=== PATIENT | male | born 1980 | race Caucasian/White ===

== ENCOUNTER 2016-11-03 14:37 | Emergency (ER) | payer BC ==
[2016-11-03] MEDS ORDERED: DIAZEPAM INJ 10 MG/2 ML DISP.SYRIN IM ONE (15:35)
[2016-11-03] MEDS ORDERED: KETOROLAC TROMETHAMINE 60 MG/2 ML SDV IM ONE (15:36)
--- NOTE | 2016-11-03 15:41 | ER Document Report ---
ED Neck/Back Problem - General Chief Complaint: Back Pain Stated Complaint: BACK PAIN Time Seen by Provider: 11/03/16 15:35 Notes: 36 yo male c/o right sided back pain. acute onset pain while bending over brushing teeth. felt a pop pain with sharp pain in right mid back down to right middle buttock. pt has hx/o DDD for which is on pain management with Doug Paige at [facility] in [place]. Pt is prescribed Percocet 10mg QID. Pt reports pain med "not touching my pain". Pt reports he was deep sea fishing yesterday, did not have pain. pt denies fever, paresthesia, bowel/bladder change. No recent injections or tattoos. TRAVEL OUTSIDE OF THE [place] IN LAST 30 DAYS: No - HPI Onset: This morning Where: Home Onset: Sudden Timing: Constant Quality of pain: Sharp Pain Level: 5 Recent injury: No Associated symptoms: None Exacerbated by: Other - movement Relieved by: Nothing Similar symptoms previously: Yes Recently seen / treated by doctor: Yes - [facility] 10/21 for chronic back pain - Related Data Allergies/Adverse Reactions: clindamycin [Clindamycin] Adverse Reaction (Verified 05/11/14 22:55) VOMITING Past Medical History - General Information source: Patient - Social History Smoking Status: Current Every Day Smoker Frequency of alcohol use: None Drug Abuse: None Lives with: Family Family History: Reviewed & Not Pertinent Patient has suicidal ideation: No Patient has homicidal ideation: No - Past Medical History Cardiac Medical History: Reports: Hx Hypertension Renal/ Medical History: Denies: Hx Peritoneal Dialysis GI Medical History: Reports: Hx Gastroesophageal Reflux Disease - Immunizations Hx Diphtheria, Pertussis, Tetanus Vaccination: - unknown Review of Systems - Review of Systems Constitutional: No symptoms reported EENT: No symptoms reported Cardiovascular: No symptoms reported Respiratory: No symptoms reported Gastrointestinal: No symptoms reported Genitourinary: No symptoms reported Male Genitourinary: No symptoms reported Musculoskeletal: Back pain Skin: No symptoms reported Hematologic/Lymphatic: No symptoms reported Neurological/Psychological: No symptoms reported Physical Exam - Vital signs Vitals: Temp Pulse Resp BP Pulse Ox 98.5 F 66 16 154/108 H 97 11/03/16 14:57 11/03/16 14:57 11/03/16 14:57 11/03/16 14:57 11/03/16 14:57 Interpretation: Normal - General General appearance: Alert In distress: Mild - HEENT Head: Normocephalic, Atraumatic Eyes: Normal Pupils: PERRL - Respiratory Respiratory status: No respiratory distress Chest status: Nontender Breath sounds: Normal Chest palpation: Normal - Cardiovascular Rhythm: Regular Heart sounds: Normal auscultation Murmur: No - Abdominal Inspection: Normal Distension: No distension Bowel sounds: Normal Tenderness: Nontender Organomegaly: No organomegaly - Back Back: Tender - right rhomboid and lattissimus muscle tenderness. no vertebral tenderness. mild right SI tenderness. neg SLT. - Extremities General upper extremity: Normal inspection, Nontender, Normal color, Normal ROM , Normal temperature General lower extremity: Normal inspection, Nontender, Normal color, Normal ROM , Normal temperature, Normal weight bearing. No: John's sign - Neurological Neuro grossly intact: Yes Cognition: Normal Orientation: AAOx4 [place] Coma Scale Eye Opening: Spontaneous Fer Coma Scale Verbal: Oriented [place] Coma Scale Motor: Obeys Commands Fer Coma Scale Total: 15 Speech: Normal Motor strength normal: LUE, RUE, LLE, RLE Sensory: Normal - Psychological Associated symptoms: Normal affect, Normal mood - Skin Skin Temperature: Warm Skin Moisture: Dry Skin Color: Normal Course - Re-evaluation Re-evalutation: 11/03/16 15:43 pt is uncomfortable but no neurologic deficits, no suspicion for epidural abscess, cauda equina or other impingements. no recent trauma. for these reasons there is no indication for imaging at this time. 11/03/16 16:54 pt re-evaluated. pain has improved. pt stable for discharge and f/u with PCM. pt agreeable with plan - Vital Signs Vital signs: Temp Pulse Resp BP Pulse Ox 98.5 F 66 16 154/108 H 97 11/03/16 14:57 11/03/16 14:57 11/03/16 14:57 11/03/16 14:57 11/03/16 14:57 Discharge - Discharge Clinical Impression: Muscle strain Back pain Qualifiers: Back pain location: low back pain Chronicity: acute Back pain laterality: right Sciatica presence: without sciatica Qualified Code(s): M54.5 - Low back pain Condition: Stable Instructions: Ice Packs ([facility]), Warm Packs ([facility]) Additional Instructions: Follow up with your primary care if pain persists Prescriptions: Diazepam [Valium 5 Mg Tablet] 10 mg PO TID PRN #30 tablet PRN Reason: Forms: Elevated Blood Pressure, Return to Work
[2016-11-03 17:16] VITALS: BP 137/92
== END 2016-11-03 17:16 | disposition home or self-care (01) ==
LOC: ER 14:37
DX: T14.8 Other injury of unspecified body region (principal); X58.XXXA Exposure to other specified factors, initial encounter; Y93.E8 Activity, other personal hygiene; M54.5 Low back pain; F17.200 Nicotine dependence, unspecified, uncomplicated; I10 Essential (primary) hypertension; Z79.891 Long term (current) use of opiate analgesic
CPT/HCPCS: 99283; 96372; J3360; J1885

== ENCOUNTER 2018-03-16 19:26 | Emergency (ER) | payer SELFPAY ==
--- NOTE | 2018-03-16 20:21 | ER Document Report ---
ED Medical Screen (RME) - General Chief Complaint: Drug Abuse Stated Complaint: ETOH ABUSE Time Seen by Provider: 03/16/18 20:13 Notes: 38-year-old male with chief complaint of opiate withdrawals including the spasms , nausea, jitteriness, he has a history of heroin abuse, has not used since yesterday, he also reports that he is having suicidal ideations, this includes a plan, he states that he was having thoughts of killing himself using a gun that is at home at this time. Denies history of suicide attempt. Denies any daily medications. TRAVEL OUTSIDE OF THE [place] IN LAST 30 DAYS: No - Related Data Allergies/Adverse Reactions: clindamycin [Clindamycin] Adverse Reaction (Verified 05/11/14 22:55) VOMITING Past Medical History - Social History Drug Abuse: Heroin - Past Medical History Cardiac Medical History: Reports: Hx Hypertension Renal/ Medical History: Denies: Hx Peritoneal Dialysis GI Medical History: Reports: Hx Gastroesophageal Reflux Disease - Immunizations Hx Diphtheria, Pertussis, Tetanus Vaccination: - unknown Physical Exam - Vital signs Vitals: Temp Pulse BP Pulse Ox 98.3 F 94 130/96 H 98 03/16/18 19:58 03/16/18 19:58 03/16/18 19:58 03/16/18 19:58 - Psychological Associated symptoms: Tearful - Patient having trouble making eye contact, he is tearful, he is anxious and jittery Course - Vital Signs Vital signs: Temp Pulse Resp BP Pulse Ox 98.3 F 94 130/96 H 98 03/16/18 19:58 03/16/18 19:58 03/16/18 19:58 03/16/18 19:58
[2018-03-16 21:07] LABS: ABSOLUTE LYMPHOCYTES (AUTO) 2.1 10^3/uL (0.5-4.7); ABSOLUTE MONOCYTES (AUTO) 0.6 10^3/uL (0.1-1.4); ABSOLUTE NEUT (AUTO) 5.4 10^3/uL (1.7-8.2); BASOPHILS % (AUTO) 0.4 % (0-2); EOSINOPHILS % (AUTO) 0.4 % (0-6); HEMATOCRIT 43.8 % (37.9-51.0); HEMOGLOBIN 15.3 g/dL (13.5-17.0); LYMPHOCYTES % (AUTO) 25.4 % (13-45); MEAN CORPUSCULAR HEMOGLOBIN 30.6 pg (27.0-33.4); MEAN CORPUSCULAR VOLUME 87 fl (80-97); MONOCYTES % (AUTO) 7.5 % (3-13); PLATELET COUNT 282 10^3/uL (150-450); RED BLOOD COUNT 5.01 10^6/uL (4.35-5.55); RED CELL DISTRIBUTION WIDTH 14.3 % (11.5-14.0); SEGMENTED NEUTROPHILS % (AUTO) 66.3 % (42-78); TOTAL CELLS COUNTED % (AUTO) 100 %; WHITE BLOOD COUNT 8.2 10^3/uL (4.0-10.5)
[2018-03-16 21:14] LABS: APPEARANCE,URINE CLEAR; BILIRUBIN,URINE NEGATIVE (NEGATIVE); COLOR,URINE STRAW; GLUCOSE, URINE NEGATIVE (NEGATIVE); KETONES,URINE NEGATIVE (NEGATIVE); LEUKOCYTE ESTERASE,URINE NEGATIVE (NEGATIVE); NITRITE,URINE NEGATIVE (NEGATIVE); PROTEIN,URINE NEGATIVE (NEGATIVE); URINE SPECIFIC GRAVITY 1.004; UROBILINOGEN,URINE NEGATIVE mg/dL (<2.0)
[2018-03-16] MEDS ORDERED: LORAZEPAM 1 MG TABLET PO ONE (21:14)
[2018-03-16] MEDS ORDERED: ONDANSETRON 4 MG TAB.RAPDIS PO ONE (21:15)
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
[2018-03-16 21:29] LABS: ALANINE AMINOTRANSFERASE 30 U/L (21-72); ALBUMIN 4.8 g/dL (3.5-5.0); ALCOHOL 13 mg/dL (NONE DETECTED); ALKALINE PHOSPHATASE 63 U/L (38-126); ANION GAP 12 (5-19); ASPARTATE AMINO TRANSFERASE 19 U/L (17-59); BILIRUBIN,DIRECT 0.4 mg/dL (0.0-0.4); BILIRUBIN,TOTAL 0.6 mg/dL (0.2-1.3); BLOOD UREA NITROGEN 15 mg/dL (7-20); CALCIUM 10.4 mg/dL (8.4-10.2); CARBON DIOXIDE 29 mmol/L (22-30); CHLORIDE 98 mmol/L (98-107); GLUCOSE 102 mg/dL (75-110); POTASSIUM 4.2 mmol/L (3.6-5.0); SODIUM 139.4 mmol/L (137-145); TOTAL PROTEIN 7.8 g/dL (6.3-8.2)
[2018-03-16 21:31] LABS: ACETAMINOPHEN < 10 ug/mL (10-30); SALICYLATE < 1.0 mg/dL (2.0-20.0)
[2018-03-16 21:31] LABS: URINE AMPHETAMINES SCREEN NEGATIVE; URINE BARBITURATES SCREEN NEGATIVE; URINE BENZODIAZEPINES SCREEN NEGATIVE; URINE COCAINE SCREEN NEGATIVE; URINE MARIJUANA (THC) SCREEN UNCONFIRMED POSITIVE; URINE METHADONE SCREEN NEGATIVE; URINE PHENCYCLIDINE SCREEN NEGATIVE
[2018-03-16] MEDS ORDERED: LORAZEPAM 0.5 MG TABLET PO PRN (22:20)
[2018-03-16] MEDS ORDERED: ONDANSETRON 4 MG TAB.RAPDIS PO PRN (22:20)
--- NOTE | 2018-03-17 09:21 | PSYCHOLOGICAL NOTE ---
Psych Note - Psych Note Psych Note: Reason for Consult: substance abuse and suicidal ideation 38-year-old male with hypertension, reflux, heroin abuse presents with request for detox and for suicidal ideation. Patient states that he is a daily heroin user. He uses every day for the last 2 years. Patient reports that he has used heroin for several years. Currently he uses a daily and reports that he is tried stopping however "I have never made it past the withdrawals." He reports that he does have a history of anxiety and depression however that was when he was much younger. He currently has no outpatient mental health or substance abuse provider. He denies suicidal and homicidal ideation, reporting he just wants assistance with detox. Patient admits to having dark thoughts when in withdrawal but denies intent. Patient is alert and orientated to person, place, time and circumstance. Mood is euthymic with congruent affect as evidenced by smiling and engaging with clinician. Patient denies suicidal and homicidal ideation. Delusions are absent behaviors congruent with an intact reality based presentation i.e. organized and linear thought processes. Eye contact was well-maintained. Conversational speech was within normal rate, tone and prosody. Intellectual abilities appear to be within the average range. Attention and concentration are fair. Insight, judgment, impulse control are fair. No medication recommendations at this time 292.9 (F11.99) unspecified opiate related disorder Impression\\plan: Patient is cleared from acute psychiatric services. Patient does not meet IVC criteria per [place] GS 122C. Patient was provided resources for local detox and substance abuse treatment. Dr. Lopes was consulted and the care management this patient; attending physician is agreement with recommendations and disposition.
--- NOTE | 2018-03-17 10:26 | EKG REPORT ---
SEVERITY:- NORMAL ECG - SINUS RHYTHM : Confirmed by: Bisi Fairbanks MD 17-Mar-2018 10:25:58
--- NOTE | 2018-03-17 11:36 | ER Document Report ---
Doctor's Note Notes: 03/17/18 11:35 Is seen and evaluated. Nothing acute at this time. Anticipate home with [facility] and detox clinic information. Currently does not meet criteria for IVC. Will follow recommendations of mental health but anticipate discharging today shortly. Discharge - Discharge Clinical Impression: Heroin abuse, Suicidal ideation Hypertension Qualifiers: Hypertension type: unspecified Qualified Code(s): I10 - Essential (primary) hypertension Condition: Good Disposition: HOME, SELF-CARE Additional Instructions: You have been evaluated by both medical and behavioral health teams and have been deemed appropriate for discharge. You have been provided resources to assist with substance treatment and detention sobriety. DEPRESSION: Your evaluation reveals that you have mental depression. While symptoms may be vague, they often include disturbance of sleep, fatigue, loss of appetite , and general loss of interest in life. While depression may be a side effect of drugs, or a reaction to a major change in your life, many cases have no known cause. If depression is acute, and related to a major loss in your life, you can expect it to clear completely with time. If you have been depressed a long time , are prone to repeated bouts of depression or low mood, or have been thinking of suicide, get help. Depression can be treated with anti-depressant medication and counselling. Long-term depression will often take a few weeks to clear, even with appropriate medication. Follow-up care is important. SUICIDAL IDEATION: Suicidal ideation is a common medical term for thoughts about suicide, which may be as detailed as a formulated plan, without the suicidal act itself. Although most people who undergo suicidal ideation do not commit suicide, some go on to make suicide attempts. The range of suicidal ideation varies greatly from fleeting to detailed planning, role playing, and unsuccessful attempts. While thoughts about suicide are common, most people do not carry out serious actions to commit suicide. Based upon your evaluation and discussion with you, we do not believe you are currently at risk to act upon your thoughts of suicide. You have agreed to return to the Emergency Department, at any time , if you feel inclined to act upon your suicidal thoughts. NARCOTIC / OPIOD ABUSE: Narcotics and opiods are pain-relieving drugs that are often abused. They are addicting. Narcotics cause euphoria, but it often takes increasing amounts to "feel good" and avoid withdrawal symptoms. Overdose of narcotics causes small pupils, coma, and decreased breathing. It's a common cause of . Purity of street narcotics is unpredictable. Injection of narcotics is risky for abscesses, endocarditis (heart infection), pneumonia, and AIDS. Withdrawal from narcotics causes goose bumps, watery mouth, sweating, nasal congestion, muscle aches, abdominal cramps, vomiting, and diarrhea. There 's often restlessness and confusion. Treatment programs are available, but you must make the decision to quit. Medication (such as clonidine) can be prescribed to control the symptoms of withdrawal. FOLLOW-UP CARE: If you experience worsening or a significant change in your symptoms, notify the physician immediately or return to the Emergency Department at any time for re-evaluation. Forms: Elevated Blood Pressure, Smoking Cessation Education Referrals: [facility] [Outside] - Follow up in 3-5 days [facility] [Outside] - Follow up as needed
[2018-03-17 12:30] VITALS: BP 139/85
== END 2018-03-17 12:30 | disposition home or self-care (01) ==
LOC: ER 19:26
DX: R45.851 Suicidal ideations (principal); F11.10 Opioid abuse, uncomplicated; I10 Essential (primary) hypertension; K21.9 Gastro-esophageal reflux disease without esophagitis; F17.210 Nicotine dependence, cigarettes, uncomplicated
CPT/HCPCS: 93005; 99285; 36415; 80307 ×4; 85025; 80053; 81001; 93010; S0119

== ENCOUNTER 2018-05-01 19:32 | Emergency (ER) | payer BC ==
[2018-05-01 20:03] LABS: ABSOLUTE BASOPHILS # (AUTO) 0.1 10^3/uL (0.0-0.2); ABSOLUTE LYMPHOCYTES (AUTO) 1.4 10^3/uL (0.5-4.7); ABSOLUTE MONOCYTES (AUTO) 0.9 10^3/uL (0.1-1.4); ABSOLUTE NEUT (AUTO) 11.5 10^3/uL (1.7-8.2); BASOPHILS % (AUTO) 0.5 % (0-2); EOSINOPHILS % (AUTO) 0.2 % (0-6); HEMATOCRIT 42.4 % (37.9-51.0); HEMOGLOBIN 14.9 g/dL (13.5-17.0); MEAN CORPUSCULAR HEMOGLOBIN 30.6 pg (27.0-33.4); MEAN CORPUSCULAR HGB CONC 35.2 g/dL (32.0-36.0); MEAN CORPUSCULAR VOLUME 87 fl (80-97); MONOCYTES % (AUTO) 6.8 % (3-13); PLATELET COUNT 286 10^3/uL (150-450); RED BLOOD COUNT 4.88 10^6/uL (4.35-5.55); RED CELL DISTRIBUTION WIDTH 14.2 % (11.5-14.0); SEGMENTED NEUTROPHILS % (AUTO) 82.5 % (42-78); TOTAL CELLS COUNTED % (AUTO) 100 %; WHITE BLOOD COUNT 13.9 10^3/uL (4.0-10.5)
[2018-05-01 20:17] LABS: ALANINE AMINOTRANSFERASE 35 U/L (21-72); ALBUMIN 4.5 g/dL (3.5-5.0); ALKALINE PHOSPHATASE 80 U/L (38-126); ANION GAP 17 (5-19); ASPARTATE AMINO TRANSFERASE 27 U/L (17-59); BILIRUBIN,DIRECT 0.2 mg/dL (0.0-0.4); BLOOD UREA NITROGEN 14 mg/dL (7-20); CALCIUM 10.1 mg/dL (8.4-10.2); CARBON DIOXIDE 20 mmol/L (22-30); CHLORIDE 100 mmol/L (98-107); GLUCOSE 113 mg/dL (75-110); LIPASE 51.8 U/L (23-300); POTASSIUM 3.8 mmol/L (3.6-5.0); SODIUM 137.4 mmol/L (137-145); TOTAL PROTEIN 6.8 g/dL (6.3-8.2)
[2018-05-01 21:01] LABS: APPEARANCE,URINE CLEAR; BILIRUBIN,URINE NEGATIVE (NEGATIVE); COLOR,URINE STRAW; GLUCOSE, URINE NEGATIVE (NEGATIVE); KETONES,URINE NEGATIVE (NEGATIVE); LEUKOCYTE ESTERASE,URINE NEGATIVE (NEGATIVE); NITRITE,URINE NEGATIVE (NEGATIVE); PROTEIN,URINE NEGATIVE (NEGATIVE); URINE SPECIFIC GRAVITY 1.006; UROBILINOGEN,URINE NEGATIVE mg/dL (<2.0)
--- NOTE | 2018-05-01 21:50 | ER Document Report ---
ED General - General Chief Complaint: Groin Pain Stated Complaint: GROIN PAIN LEFT TESTICAL Time Seen by Provider: 05/01/18 21:36 Mode of Arrival: Ambulatory Information source: Patient Notes: This is a 38-year-old man with no medical problems who presents to the emergency room with left flank and left testicular pain. Patient states he was urinating and had the door to the bathroom opened and when someone came in the house, he weakly shut off the urine flow to close the door. He states that after this he felt pressure and urge to urinate but was unable to urinate. He states that he started to have left lower quadrant pain which increased in intensity with a sensation of needing to pee. He states this continued until he presented to the emergency room. History of STD. Patient is not sexually active. TRAVEL OUTSIDE OF THE [place] IN LAST 30 DAYS: No - HPI Onset: Just prior to arrival Onset/Duration: Sudden Quality of pain: Dull Severity: Moderate Associated symptoms: denies: Chest pain, Fever, Nausea, Vomiting, Shortness of breath Exacerbated by: Denies Relieved by: Denies Similar symptoms previously: No Recently seen / treated by doctor: No - Related Data Allergies/Adverse Reactions: clindamycin [Clindamycin] Adverse Reaction (Verified 05/11/14 22:55) VOMITING Past Medical History - General Information source: Patient - Social History Smoking Status: Current Every Day Smoker Cigarette use (# per day): Yes - Half pack per day Chew tobacco use (# tins/day): No Frequency of alcohol use: None Drug Abuse: None Lives with: Family Family History: Reviewed & Not Pertinent Patient has suicidal ideation: No Patient has homicidal ideation: No - Past Medical History Cardiac Medical History: Reports: Hx Hypertension Renal/ Medical History: Denies: Hx Peritoneal Dialysis GI Medical History: Reports: Hx Gastroesophageal Reflux Disease Surgical Hx: Negative - Immunizations Hx Diphtheria, Pertussis, Tetanus Vaccination: - unknown Review of Systems - Review of Systems Constitutional: denies: Chills, Fever EENT: No symptoms reported Cardiovascular: No symptoms reported Respiratory: No symptoms reported Gastrointestinal: See HPI Genitourinary: See HPI Male Genitourinary: See HPI Musculoskeletal: No symptoms reported Skin: No symptoms reported Hematologic/Lymphatic: No symptoms reported Neurological/Psychological: No symptoms reported Physical Exam - Vital signs Vitals: Temp Pulse Resp BP Pulse Ox 98.6 F 93 17 135/99 H 100 05/02/18 01:49 05/02/18 01:49 05/02/18 01:49 05/02/18 01:49 05/02/18 01:49 Notes: Physical exam: GENERAL: Patient is alert and oriented x3, no acute distress. He states he feels much better. He was given a shot of IM Toradol in triage. HEAD: Atraumatic, normocephalic. EYES: Pupils equal round and reactive to light, extraocular movements intact, sclera anicteric, conjunctiva are normal. ENT: TMs normal, nares patent, oropharynx clear without exudates. Moist mucous membranes. NECK: Normal range of motion, supple without obvious mass or JVD. LUNGS: Breath sounds clear to auscultation bilaterally and equal. No wheezes rales or rhonchi. HEART: Regular rate and rhythm without murmurs, rubs or gallops. ABDOMEN: Soft, normoactive bowel sounds. No tenderness to palpation. No guarding, no rebound. No masses appreciated. Testes: No swelling. Both testicles and normal lie. Right testicle nontender with tenderness over the epididymis. No inguinal hernia on the right side. Last testicle has a normal lie without swelling. The epididymis is mildly tender. There is no tenderness or palpable inguinal hernia. EXTREMITIES: Normal range of motion, no pitting or edema. No clubbing or cyanosis. NEUROLOGICAL: Cranial nerves II through XII grossly intact. Normal speech, moving all extremities. PSYCH: Normal mood, normal affect. SKIN: Warm, Dry, normal turgor, no rashes or lesions noted. Course - Re-evaluation Re-evalutation: 05/02/18 02:39 Note: Patient states he feels much better. His repeat abdominal exam is soft and nontender. He is ambulating around the room without difficulty. I have given him instructions on returning if return of pain or if he thinks he is getting worse. - Vital Signs Vital signs: Temp Pulse Resp BP Pulse Ox 98.6 F 93 17 135/99 H 100 05/02/18 01:49 05/02/18 01:49 05/02/18 01:49 05/02/18 01:49 05/02/18 01:49 - Laboratory Result Diagrams: 05/01/18 19:46 05/01/18 19:46 Laboratory results interpreted by me: 05/01/18 05/01/18 05/01/18 19:46 19:46 20:32 WBC 13.9 H RDW 14.2 H Seg Neutrophils % 82.5 H Lymphocytes % 10.0 L Absolute Neutrophils 11.5 H Carbon Dioxide 20 L Glucose 113 H Urine Blood MODERATE H - Diagnostic Test Radiology reviewed: Image reviewed, Reports reviewed - Nuclear ultrasound shows good blood flow. Discharge - Discharge Clinical Impression: Flank and testicle pain Condition: Stable Disposition: HOME, SELF-CARE Additional Instructions: As we discussed, the ultrasound of the testicles look good. The good blood flow to the testicles (which is important) was intact. I want you to take it easy over the next couple of days. You could take ibuprofen every 6 hours if you have any flank cramping. Return to the emergency room if you have any difficulty urinating, worsening pain, blood in the urine or any concerns or getting worse. Otherwise, you can follow-up with a urologist: It is recommended that you follow-up with a urologist: [facility] [place] [address] [place], [place] [phone] [place] [facility] [address] [facility]. [place], [place] [phone]
--- NOTE | 2018-05-02 00:15 | RADIOLOGY REPORT (SQ) ---
US SCROTUM HISTORY: Left testicular pain and swelling for one day. Query left undescended testes. COMPARISON: None. TECHNIQUE: Taylor-scale, color Doppler, and spectral Doppler ultrasound images of the scrotum were obtained. FINDINGS: RIGHT: Normal size and echogenicity of the testis, measuring 4.3 x 2.3 x 3.1 cm. Positive color Doppler flow is present. No focal intratesticular mass is seen. The epididymis also has normal size and echogenicity, and measures 1.2 x 0.9 x 1.0 cm. LEFT: Normal size and echogenicity of the testis, measuring 4.1 x 2.2 x 3.0 cm. Positive color Doppler flow is present. No focal intratesticular mass is seen. The epididymis also has normal size and echogenicity, and measures 1.0 x 0.6 x 1.3 cm. OTHER: No hydroceles. No varicoceles. No scrotal hernias. IMPRESSION: No evidence of testicular torsion or inflammation. Both testes are within the scrotum. Correlate with reported history of undescended testes.
[2018-05-02 01:53] VITALS: BP 135/99
== END 2018-05-02 02:09 | disposition home or self-care (01) ==
LOC: ER 19:32
DX: N50.812 Left testicular pain (principal); R10.32 Left lower quadrant pain; I10 Essential (primary) hypertension; F17.210 Nicotine dependence, cigarettes, uncomplicated
CPT/HCPCS: 36415; 76870; 80053; 81001; 83690; 85025; 93976; 99284

== ENCOUNTER 2018-05-03 02:11 | Emergency (ER) | payer BC ==
[2018-05-03 03:20] LABS: APPEARANCE,URINE CLEAR; BILIRUBIN,URINE NEGATIVE (NEGATIVE); COLOR,URINE YELLOW; GLUCOSE, URINE NEGATIVE (NEGATIVE); KETONES,URINE NEGATIVE (NEGATIVE); LEUKOCYTE ESTERASE,URINE TRACE (NEGATIVE); NITRITE,URINE NEGATIVE (NEGATIVE); PROTEIN,URINE NEGATIVE (NEGATIVE); URINE SPECIFIC GRAVITY 1.014
--- NOTE | 2018-05-03 03:41 | RADIOLOGY REPORT (SQ) ---
CT abdomen and pelvis without contrast on 05/03/2018 at 3:10 AM CLINICAL INDICATION: Left-sided back pain TECHNIQUE: Multiple axial images are obtained throughout the abdomen and pelvis without the administration of contrast. This exam was performed according to our departmental dose-optimization program, which includes automated exposure control, adjustment of the mA and/or kV according to patient size and/or use of iterative reconstruction technique. Total DLP is 425.33 mGy*cm. COMPARISON: None FINDINGS: Abdomen: The lung bases are clear. There is mild left hydronephrosis and hydroureter to the level of a 2 mm left UVJ stone. There are no other renal or ureteral stones and no right hydronephrosis. The unenhanced solid abdominal organs are otherwise unremarkable. There is no abdominal adenopathy. There is no free fluid or free air within the abdomen. The abdominal portion of the GI tract is unremarkable. Pelvis: There is no free fluid in the pelvis. There is no pelvic adenopathy. The pelvic portion of the GI tract including the appendix is unremarkable. No bony abnormality is noted. IMPRESSION: 1. Mild left hydronephrosis and hydroureter to the level of a 2 mm left UVJ stone. 2. Otherwise no acute abnormality.
--- NOTE | 2018-05-03 03:56 | ER Document Report ---
ED General - General Chief Complaint: Flank Pain Stated Complaint: ABDOMINAL PAIN Time Seen by Provider: 05/03/18 02:43 Notes: Patient presents with left testicle pain and difficulty urinating for 2 days. No testicle swelling or penile discharge. This is intermittent and worsening throughout the day today. The patient was seen in the ED yesterday, at that time he did not have any flank pain. His testicle was ultrasound and was normal as was his urine. He says his pain worsened today and now he has left flank pain which he did not yesterday, with mild left lower quadrant pain as well. TRAVEL OUTSIDE OF THE [place] IN LAST 30 DAYS: No - Related Data Allergies/Adverse Reactions: clindamycin [Clindamycin] Adverse Reaction (Verified 05/11/14 22:55) VOMITING Past Medical History - Social History Smoking Status: Current Every Day Smoker Chew tobacco use (# tins/day): No Frequency of alcohol use: Occasional Drug Abuse: None Family History: Reviewed & Not Pertinent Patient has suicidal ideation: No Patient has homicidal ideation: No - Past Medical History Cardiac Medical History: Reports: Hx Hypertension Renal/ Medical History: Denies: Hx Peritoneal Dialysis GI Medical History: Reports: Hx Gastroesophageal Reflux Disease - Immunizations Hx Diphtheria, Pertussis, Tetanus Vaccination: - unknown Review of Systems - Review of Systems Notes: REVIEW OF SYSTEMS GEN: Denies fever, chills, weight loss ENT: Denies sore throat, nasal discharge, ear pain EYES: Denies blurry vision, eye pain, discharge CV: Denies chest pain, palpitations, edema RESP: Denies cough, shortness of breath, wheezing GI: Denies abdominal pain, nausea, vomiting, diarrhea MSK: Denies joint pain/swelling, edema, SKIN: Denies rash, skin lesions LYMPH: Denies swollen glands/lymph nodes NEURO: Denies headache, focal weakness or numbness, dizziness PSYCH: Denies depression, suicidal or homicidal ideation PHYSICAL EXAMINATION General: No acute distress, well-nourished Head: Atraumatic, normocephalic ENT: Mouth normal, oropharynx moist, no exudates or tonsillar enlargement Eyes: Conjunctiva normal, pupils equal, lids normal Neck: No JVD, supple, no guarding CVS: Normal rate, regular rhythm, no murmurs Resp: No resp distress, equal and normal breath sounds bilaterally GI: Nondistended, soft, no tenderness to palpation, no rebound or guarding Ext: No deformities, no edema, normal range of motion in upper and lower ext Back: No CVA or midline TTP Skin: No rash, warm Lymphatic: No lymphadeopathy noted Neuro: Awake, alert. Face symmetric. GCS 15. Physical Exam - Vital signs Vitals: Temp Pulse Resp BP Pulse Ox 98.4 F 90 16 152/94 H 98 05/03/18 02:29 05/03/18 02:29 05/03/18 02:29 05/03/18 02:29 05/03/18 02:29 Course - Re-evaluation Re-evalutation: 05/03/18 04:17 Presents with flank pain and resolving testicle pain he may dynamically stable with no tenderness. Urinalysis shows blood, CT shows 2 mm left UVJ stone with mild hydronephrosis. Patient is refusing pain meds at this time. He will be discharged with Zofran Motrin and Percocet, and refer to urology. I have discussed with the patient there likely diagnosis, aftercare plan, follow-up plans and my usual and customary return precautions. They verbalized understanding of this. - Vital Signs Vital signs: Temp Pulse Resp BP Pulse Ox 98.4 F 90 16 152/94 H 98 05/03/18 02:29 05/03/18 02:29 05/03/18 02:29 05/03/18 02:29 05/03/18 02:29 - Laboratory Laboratory results interpreted by me: 05/03/18 03:03 Urine Blood LARGE H Urine Urobilinogen 2.0 H Ur Leukocyte Esterase TRACE H - Diagnostic Test Radiology reviewed: Image reviewed, Reports reviewed Discharge - Discharge Instructions: Kidney Stone ([facility]) Prescriptions: Ibuprofen [Motrin 600 Mg Tablet] 600 mg PO TID #15 tablet Ondansetron [Zofran Odt 4 mg Tablet] 1 - 2 tab PO Q4H PRN #15 tab.rapdis PRN Reason: For Nausea/Vomiting Oxycodone HCl/Acetaminophen [Percocet 5-325 mg Tablet] 1 - 2 tab PO Q4H PRN #15 tablet PRN Reason: Referrals: SIMONE JOHNSON MD [NO LOCAL MD] - Follow up as needed
[2018-05-03] MEDS ORDERED: HYDROMORPHONE HCL INJ/PF 2 MG/ML AMPULE IM ONE (04:20)
[2018-05-03] MEDS ORDERED: ONDANSETRON 4 MG TAB.RAPDIS PO ONE (04:20)
[2018-05-03 05:07] VITALS: BP 160/104
== END 2018-05-03 04:33 | disposition home or self-care (01) ==
LOC: ER 02:11
DX: N13.2 Hydronephrosis with renal and ureteral calculous obstruction (principal); N50.812 Left testicular pain; F17.200 Nicotine dependence, unspecified, uncomplicated; I10 Essential (primary) hypertension
CPT/HCPCS: 99284; 96372; 81001; 74176; S0119; J1170

== ENCOUNTER 2018-09-20 01:41 | Emergency (ER) | payer BC ==
[2018-09-20] MEDS ORDERED: ACETAMINOPHEN 325 MG TABLET PO ONE (01:53)
[2018-09-20] MEDS ORDERED: KETOROLAC TROMETHAMINE 10 MG TABLET PO ONE (03:24)
--- NOTE | 2018-09-20 04:24 | ER Document Report ---
ED General - General Chief Complaint: Ankle Pain Stated Complaint: FOOT PAIN Time Seen by Provider: 09/20/18 03:19 Notes: Patient is a pleasant 38-year-old male who presents with complaint of sudden onset of ankle pain with gradual worsening pain and swelling over the course of few hours. He said that it became red and inflamed and therefore came to the ER. Said when he first arrived he can bear weight and it was very painful. Pain and swelling is all along the medial aspect of the left ankle. He denies any trauma or injuries. He said the pain started while he was at work and walking. He was given Tylenol in triage. An hour or so after receiving Tylenol he says that the swelling and redness and pain suddenly almost completely resolved. He said over the course of 10 minutes the pain and swelling went down very quickly. He is never had anything like this happen before. He does not drink alcohol regular basis. No history of gout. No recent trauma or injuries. No fevers. No recent infections. He denies seeing a spider or any type of venomous animal bite him. No other complaints at this time. TRAVEL OUTSIDE OF THE [place] IN LAST 30 DAYS: No - Related Data Allergies/Adverse Reactions: clindamycin [Clindamycin] Adverse Reaction (Verified 05/11/14 22:55) VOMITING Past Medical History - Social History Smoking Status: Never Smoker Frequency of alcohol use: None Drug Abuse: None Family History: Reviewed & Not Pertinent - Past Medical History Cardiac Medical History: Reports: Hx Hypertension Renal/ Medical History: Denies: Hx Peritoneal Dialysis GI Medical History: Reports: Hx Gastroesophageal Reflux Disease - Immunizations Hx Diphtheria, Pertussis, Tetanus Vaccination: - unknown Review of Systems - Review of Systems Notes: My Normal Review Basic REVIEW OF SYSTEMS: CONSTITUTIONAL : Denies fever, chills, or sweats. Denies recent illness. EENT: Denies eye, ear, throat, or mouth pain or symptoms. Denies nasal or sinus congestion. MUSCULOSKELETAL: Left ankle pain SKIN: Denies rash or skin lesions. NEUROLOGICAL: Denies sensory or motor loss. ALL OTHER SYSTEMS REVIEWED AND NEGATIVE. Physical Exam - Notes Notes: General Appearance: Well nourished, alert, cooperative, no acute distress, mild obvious discomfort. Vitals: reviewed, See vital signs table. Extremities: strength 5/5 in all extremities, good pulses in all extremities, mild swelling to the medial malleolus of the left ankle. Slight redness over the area. No swelling or pain into the remainder of the leg. Good distal pulses. Good capillary refill. Skin: warm, dry, appropriate color, no rash Neuro: speech clear, oriented x 3, normal affect, responds appropriately to questions. Course - Re-evaluation Re-evalutation: 09/20/18 04:31 Discussed with the patient is not exactly clear what causes swelling and pain. It is odd that it resolved very quickly on its own. The only thing received was Tylenol. It is possible that he may have had a venomous insect bite or ant bite or spider bite to the ankle. I do not suspect a snakebite as there is no puncture wounds over the ankle. Swelling has continued to improve. Pain is continued to improve on its own. I did give him a dose of Toradol. I will prescribe him some Toradol. I do not suspect ischemia as the patient is good distal pulses good cap refill. I do not suspect DVT as the swelling is only over the medial malleolus and the remainder of the leg is not swollen or tender. I informed the patient to rest for the next 24 hours and will give him crutches to use so he is nonweightbearing. Informed him to return to ER in 24 hours if his symptoms have not resolved. I encouraged him return to ER immediately if he has worsening redness swelling or worsening pain. Patient agrees with plan will be discharged home. Dictation of this chart was performed using voice recognition software; therefore, there may be some unintended grammatical errors. Discharge - Discharge Clinical Impression: Ankle pain, left Qualifiers: Chronicity: acute Qualified Code(s): M25.572 - Pain in left ankle and joints of left foot Condition: Good Disposition: HOME, SELF-CARE Additional Instructions: It is not exactly clear what causes swelling and pain in your ankle. At this time I do not suspect infection as the swelling and redness decreased without any intervention other than Tylenol. You did not have any trauma. At this time we will treat her with anti-inflammatories and give crutches. If in 24 hours your ankle is not better and you are not able to bear weight then you should return to the ER for reevaluation. Please return to ER immediately if you have increasing swelling, any fevers, or any spreading redness. I have prescribed Toradol for an inflammatory effect and for pain.Do not take other NSAID medicaitons such as Aspirin, Motrin, Ibuprofen, Aleve, or Advil when taking this medication. It is okay to take Tylenol. Prescriptions: Ketorolac Tromethamine [Toradol 10 mg Tablet] 10 mg PO Q8HP PRN #15 tablet PRN Reason: pain Forms: Return to Work
== END 2018-09-20 05:12 | disposition home or self-care (01) ==
LOC: ER 01:41
DX: M25.572 Pain in left ankle and joints of left foot (principal); M25.472 Effusion, left ankle; L53.9 Erythematous condition, unspecified; I10 Essential (primary) hypertension
CPT/HCPCS: 99283; J3490